=== PATIENT | female | born 1990 | race Caucasian/White ===

== ENCOUNTER 2018-12-26 16:25 | Inpatient (IN) | payer BC, OTHER ==
[2019-01-03] MEDS ORDERED: LIDOCAINE 0.5% (PF) 5 MG/ML (50 ML SDV) SQ PRN (06:47)
[2019-01-03] MEDS ORDERED: CARBOPROST TROMETHAMINE 250 MCG/ML 1 ML AMP IM PRN (06:47)
[2019-01-03] MEDS ORDERED: METHYLERGONOVINE 0.2 MG/ML 1 ML AMP IM PRN (06:47)
[2019-01-03] MEDS ORDERED: OXYTOCIN 10 UNIT/ML 1 ML VIAL IM PRN (06:47)
[2019-01-03] MEDS ORDERED: PENICILLIN G POTASSIUM 5,000,000 UNIT in DEXTROSE 5% IN WATER 100 ML IVPB STA ×2 (06:47)
[2019-01-03] MEDS ORDERED: TERBUTALINE 1 MG/ML VIAL SQ PRN (06:47)
[2019-01-03] MEDS ORDERED: OXYTOCIN 20 UNITS/1000 ML NS 1,000 ML IV SCH ×2 (07:00→17:00)
[2019-01-03] MEDS: LACTATED RINGERS 1,000 ML IV SCH ×2 (07:00→13:48)
[2019-01-03 07:18] VITALS: BMI 34.4
[2019-01-03 07:29] LABS: Basophils % (A) 0 %; Eosinophils # (A) 0.1 k/uL (0-0.7); Eosinophils % (A) 1 %; HCT 39.5 % (34.0-46.0); HGB 12.9 gm/dL (11.4-16.0); Lymphocytes # (A) 1.4 k/uL (1.0-4.8); Lymphocytes % (A) 14 %; MCH 28.5 pg (25.0-35.0); MCHC 32.7 g/dL (31.0-37.0); MCV 87.2 fL (80.0-100.0); Mean Platelet Volume 8.5; Monocytes # (A) 0.4 k/uL (0-1.0); Monocytes % (A) 4 %; Neutrophils # (A) 7.7 k/uL (1.3-7.7); Neutrophils % (A) 79 %; Platelet Count 186 k/uL (150-450); RBC 4.53 m/uL (3.80-5.40); RDW 15.3 % (11.5-15.5); WBC 9.7 k/uL (3.8-10.6)
[2019-01-03] MEDS ORDERED: BUTORPHANOL 1 MG/ML 1 ML VIAL IV PRN (08:40)
--- NOTE | 2019-01-03 08:44 | P.HPOB ---
History of Present Illness H&P Date: 01/03/19 Chief Complaint: 41 and one sevenths weeks, induction The patient is a 28-year-old 2 para 1001 admitted at 41 and one sevenths weeks by good dating parameters. She is admitted for postdates induction of labor with all signs reassuring. Her has been uncomplicated though she is known to be group B strep positive. Obstetrical history: 2 para 1001 with 1 term vaginal delivery without applications. Current statistics are listed in history present illness. EDC of 12/26/2018 was established by last menstrual period and confirmed by 8 week ultrasound. Laboratory workup done traits of blood type of A+ with a negative antibody screen. Rubella status is immune. The remainder of the laboratory workup was within normal limits. One hour Glucola is normal and group B strep status is positive. Gynecologic history: Unremarkable with no history of any infections to include STDs. Review of Systems Review of systems is confined to history of present illness. Past Medical History Past Medical History: No Reported History History of Any Multi-Drug Resistant Organisms: None Reported Additional Past Surgical History / Comment(s): [place] tooth extraction Past Anesthesia/Blood Transfusion Reactions: No Reported Reaction Past Psychological History: No Psychological Hx Reported Smoking Status: Never smoker Past Alcohol Use History: None Reported Past Drug Use History: None Reported - Past Family History Father Family Medical History: No Reported History Medications and Allergies Home Medications Medication Instructions Recorded Confirmed Type Pnv,Calcium 72/Iron/Folic Acid 1 each PO DAILY 11/13/16 01/03/19 History [ Plus Tablet] Allergies Allergy/AdvReac Type Severity Reaction Status Date / Time No Known Allergies Allergy Verified 11/16/16 06:53 Exam Vital Signs Temp Pulse Resp BP 01/03/19 07:09 97.9 F 95 16 124/68 Intake and Output 01/02/19 01/03/19 01/03/19 22:59 06:59 14:59 Other: Weight 99.79 kg In general, this is a well-developed, well-nourished white female in no acute distress. Her heart has a regular rhythm and rate without murmur. Her lungs are clear to auscultation bilaterally in all goetz. Her abdomen is gravid, nondistended, has normal active bowel sounds, soft, nontender, and without any palpable masses aside from uterine fundus. Her extremities without any cyanosis , clubbing, or significant edema and are nontender to palpation bilaterally. Digital cervical examination demonstrates her cervix to be approximately 2+ centimeters dilated, 50% effaced, the vertex in presentation at -2 station. Artificial rupture of membranes is carried out demonstrating clear fluid. Results Result Diagrams: 01/03/19 07:00 Assessment and Plan (1) Group B streptococcal infection in Current Visit: Yes Status: Acute Code(s): O98.819 - OTH MATERNAL INFEC/ PARASTC DISEASES COMP PREG, UNSP TRI; B95.1 - STREPTOCOCCUS, GROUP B, CAUSING DISEASES [facility] SN[facility] Code(s): 386811457 (2) Post-dates Current Visit: Yes Status: Acute Code(s): O48.0 - POST-TERM SNOMED Code(s): 62994835 Plan: The patient has been admitted for Pitocin induction which has been started. She additionally has antibody prophylaxis started for group B strep. She will have close maternal and surveillance and expectant management will be practiced. She is a good candidate for either IV or epidural analgesia, whichever she may choose.
[2019-01-03] MEDS ORDERED: PENICILLIN G POTASSIUM 2,500,000 UNIT in DEXTROSE 5% IN WATER 100 ML IVPB SCH ×2 (11:00)
[2019-01-03] MEDS ORDERED: SODIUM CHLORIDE 0.9% 100 ML BAG ONE (11:10)
[2019-01-03] MEDS ORDERED: fentaNYL (PF) 50 MCG/ML 5 ML AMP ONE (11:10)
[2019-01-03] MEDS ORDERED: ROPIVACAINE 5MG/ML 20ML VIAL ONE (11:10)
[2019-01-03] MEDS ORDERED: LANOLIN CREAM 5 GM TUBE TOPICAL PRN (16:56)
[2019-01-03] MEDS ORDERED: ZOLPIDEM 5 MG TAB PO PRN (16:56)
[2019-01-03] MEDS ORDERED: WITCH HAZEL 1 EACH MED..PAD TOPICAL PRN (16:56)
[2019-01-03] MEDS ORDERED: HYDROcodone/APAP 5-325MG 1 EACH TAB PO PRN (16:56)
[2019-01-03] MEDS ORDERED: BENZOCAINE/MENTHOL SPRAY 1 GM/SPRAY AEROSOL TOPICAL PRN (16:56)
[2019-01-03] MEDS ORDERED: diphenhydrAMINE 50 MG/ML 1 ML VIAL IVP PRN ×2 (16:56)
[2019-01-03] MEDS ORDERED: HYDROcodone/APAP 7.5-325MG 1 EACH TAB PO PRN (16:56)
[2019-01-03] MEDS ORDERED: diphenhydrAMINE 50 MG CAP PO PRN (16:56)
[2019-01-03] MEDS ORDERED: SIMETHICONE 80 MG CHEWABLE PO PRN (16:56)
[2019-01-03] MEDS ORDERED: ACETAMINOPHEN TAB 325 MG TAB PO PRN (16:56)
[2019-01-03] MEDS ORDERED: HYDROCORTISONE 2.5% RECTAL CREAM 30 GM TUBE RECTAL PRN (16:56)
[2019-01-03] MEDS ORDERED: diphenhydrAMINE 25 MG CAP PO PRN (16:56)
--- NOTE | 2019-01-03 17:00 | P.PROBDLV ---
Vaginal Delivery Note - . Vaginal Delivery Note: The patient is a 28-year-old 2 para 1001 admitted at 41 and one sevenths weeks by good dating parameters. She is admitted for postdates induction of labor with all signs reassuring. Her has been uncomplicated and group B strep status is positive. As result, she had antibody prophylaxis started and also had Pitocin augmentation started. She underwent artificial rupture of membranes demonstrating clear fluid. She made progress to the onset of the active phase of labor and had an epidural catheter placed for analgesia. She then made steady progress through the active phase of labor to complete and pushed over the course of approximately 5-10 minutes to a normal spontaneous vaginal delivery of a viable 9 lbs. 8 oz. baby boy with Apgars of 9 at 1 minute and 9 at 5 minutes delivered in the left occiput anterior position. There were 2 nuchal cords which were reduced following delivery of the . The placenta was delivered spontaneously, intact, and grossly normal although there were some calcifications. It had a grossly normal three-vessel cord inserted approximate 3 cm from the margin of the placental disc. A second-degree midline perineal laceration was noted over the site of a previous laceration and repaired in standard fashion using 3-0 chromic catgut without difficulty. Estimated blood loss for the case was approximately 250 mL. There were no complications. All sponge, instrument, and needle counts were correct. Both mother and are resting comfortably in recovery.
[2019-01-03] MEDS: SENNOSIDES-DOCUSATE SODIUM 1 EACH TAB PO SCH (20:18)
[2019-01-03] MEDS: IBUPROFEN 600 MG TAB PO PRN (21:59)
[2019-01-04] MEDS: IBUPROFEN 600 MG TAB PO PRN ×3 (03:25→19:34)
--- NOTE | 2019-01-04 08:53 | P.DS ---
Providers Date of admission: 01/03/19 06:39 Expected date of discharge: 01/04/19 Attending physician: Beau Alston Primary care physician: Stated None - Discharge Diagnosis(es) (1) Group B streptococcal infection in Current Visit: Yes Status: Acute (2) Post-dates Current Visit: Yes Status: Acute (3) Normal spontaneous vaginal delivery Current Visit: Yes Status: Acute Hospital Course: The patient is a 28-year-old 2 para 1001 admitted at 41 and one sevenths weeks for postdates induction. Her was uncomplicated and group B strep status was positive. On labor and delivery, she had antibody prophylaxis and Pitocin started. She underwent artificial rupture of membranes and later had an epidural catheter placed for analgesia. She progressed steadily throughout the day to complete and then pushed to a normal spontaneous vaginal delivery of a viable 9 lbs. 8 oz. baby boy with Apgars of 9 at 1 minute and 9 at 5 minutes. Her course was unremarkable with vital signs remaining stable and her temperature was afebrile throughout. She was deemed stable for discharge on day 1 was discharged home to follow-up in the office in 6 weeks' time routinely. Discharge instructions included calling for any significantly increased bleeding or foul-smelling lochia, fever or abdominal pain, perineal complaints, breast complaints, or anything else that concerned her. She is additionally instructed to have nothing in the vagina for at least 6 weeks time to include intercourse. She understood her instructions and agrees to follow up as noted above. Discharge medications included only continue vitamins as she has opted to breast-feed as well as [id number] analgesic pain medications. Maternal blood type is A+ and rubella status is immune. Procedures: #1. Pitocin induction #2. Antibiotic prophylaxis #3. Artificial rupture of membranes #4. Epidural analgesia #5. Normal spontaneous vaginal delivery #. Repair of perineal laceration Patient Condition at Discharge: Good Plan - Discharge Summary New Discharge Prescriptions: No Action Pnv,Calcium 72/Iron/Folic Acid [ Plus Tablet] 1 each PO DAILY Discharge Medication List Pnv,Calcium 72/Iron/Folic Acid [ Plus Tablet] 1 each PO DAILY 11/13/16 [ History] Follow up Appointment(s)/Referral(s): Beau Alston MD [STAFF PHYSICIAN] - 6 Weeks Discharge Disposition: HOME SELF-CARE
[2019-01-04] MEDS: SENNOSIDES-DOCUSATE SODIUM 1 EACH TAB PO SCH ×2 (09:48→20:48)
[2019-01-04 15:27] VITALS: BP 107/67; PULSE 93; RESP 20; TEMP 97.9
== END 2019-01-04 20:30 | disposition home or self-care (01) | DRG 807 ==
LOC: 4FBP 01-03 06:39
PROVIDERS: ADMIT Obstetrics & Gynecology; ATTEND Obstetrics & Gynecology
PROC: 10E0XZZ Delivery of Products of Conception, External Approach (ICD-10-PCS; principal; 2019-01-03)
PROC: 0KQM0ZZ Repair Perineum Muscle, Open Approach (ICD-10-PCS; 2019-01-03)
PROC: 10907ZC Drainage of Amniotic Fluid, Therapeutic from Products of Conception, Via Natural or Artificial Opening (ICD-10-PCS; 2019-01-03)
PROC: 3E033VJ Introduction of Other Hormone into Peripheral Vein, Percutaneous Approach (ICD-10-PCS; 2019-01-03)
PROC: 00HU33Z Insertion of Infusion Device into Spinal Canal, Percutaneous Approach (ICD-10-PCS; 2019-01-03)
PROC: 3E0R3BZ Introduction of Anesthetic Agent into Spinal Canal, Percutaneous Approach (ICD-10-PCS; 2019-01-03)
DX: O48.0 Post-term pregnancy (principal); Z37.0 Single live birth; O69.81X0 Labor and delivery complicated by cord around neck, without compression, not applicable or unspecified; O70.1 Second degree perineal laceration during delivery; O99.824 Streptococcus B carrier state complicating childbirth; Z3A.41 41 weeks gestation of pregnancy
CPT/HCPCS: 85025; 86850; 86900; 86901

== ENCOUNTER 2020-01-07 16:15 | Emergency (ER) | payer BC, OTHER ==
[2020-01-07 16:19] VITALS: BP 114/72
[2020-01-07] MEDS ORDERED: IBUPROFEN 600 MG TAB PO STA (17:22)
[2020-01-07] MEDS ORDERED: ACETAMINOPHEN TAB 325 MG TAB PO STA (17:22)
--- NOTE | 2020-01-07 17:27 | XR ---
EXAMINATION TYPE: XR chest 2V DATE OF EXAM: 01/07/2020 COMPARISON: NONE HISTORY: Cough TECHNIQUE: Frontal and lateral views of the chest are obtained. FINDINGS: There is no focal air space opacity, pleural effusion, or pneumothorax seen. Peribronchial cuffing on the lateral view. The cardiac silhouette size is within normal limits. The osseous str uctures are intact. IMPRESSION: No focal consolidation to suggest pneumonia. Peribronchial cuffing, correlate for bronch itis.
[2020-01-07] MEDS ORDERED: OSELTAMIVIR 75 MG CAP PO STA (17:33)
[2020-01-07] MEDS ORDERED: IPRATROPIUM-ALBUTEROL 3 ML NEB INHALATION STA (17:43)
[2020-01-07 18:19] VITALS: TEMP 100.9
[2020-01-07 18:27] VITALS: PULSE 119; RESP 24
--- NOTE | 2020-01-07 18:31 | ED ---
General Adult HPI - General Chief complaint: Upper Respiratory Infection Stated complaint: chest congestion Time Seen by Provider: 01/07/20 16:38 Source: patient, RN notes reviewed, old records reviewed Mode of arrival: ambulatory Limitations: no limitations - History of Present Illness Initial comments: 29-year-old female patient presents to ED with chief complaint of 2 days of cough, congestion, fever. Son has similar symptoms. Reports that she does have some rib pain with coughing. Denies any other complaints. Denies any chance of being . Systemic: Pt denies fatigue, fever/chills, rash. Pt denies weakness, night sweats, weight loss. Neuro: Pt denies headache, visual disturbances, syncope or pre-syncope. HEENT: Pt denies ocular discharge or irritation, otalgia, rhinorrhea, pharyngitis or notable lymphadenopathy. Cardiopulmonary: Pt denies heart palpitations, dyspnea on exertion. Abdominal/GI: Pt denies abdominal pain, n/v/d. : Pt denies dysuria, burning w/ urination, frequency/urgency. Denies new onset urinary or bowel incontinence. MSK: Pt denies myalgia, loss of strength or function in extremities. Neuro: Pt denies new onset weakness, paresthesias. - Related Data Home Medications Medication Instructions Recorded Confirmed Pnv,Calcium 72/Iron/Folic Acid 1 each PO DAILY 11/13/16 01/03/19 [ Plus Tablet] Previous Rx's Medication Instructions Recorded Albuterol Inhaler [Ventolin Hfa 1 - 2 puff INHALATION Q4-6H PRN #1 01/07/20 Inhaler] inhaler Oseltamivir [Tamiflu] 75 mg PO Q12HR 5 Days #10 cap 01/07/20 predniSONE 50 mg PO DAILY #5 tab 01/07/20 Allergies Allergy/AdvReac Type Severity Reaction Status Date / Time No Known Allergies Allergy Verified 01/07/20 16:19 Review of Systems ROS Statement: Those systems with pertinent positive or pertinent negative responses have been documented in the HPI. ROS Other: All systems not noted in ROS Statement are negative. Past Medical History Past Medical History: No Reported History History of Any Multi-Drug Resistant Organisms: None Reported Past Surgical History: No Surgical Hx Reported Additional Past Surgical History / Comment(s): [place] tooth extraction Past Anesthesia/Blood Transfusion Reactions: No Reported Reaction Past Psychological History: No Psychological Hx Reported Smoking Status: Never smoker Past Alcohol Use History: None Reported Past Drug Use History: None Reported - Past Family History Father Family Medical History: No Reported History General Exam - General Exam Comments Initial Comments: Constitutional: NAD, AOX3, Pt has pleasant affect. HEENT: NC/AT, trachea midline, neck supple, no lymphadenopathy. Posterior pharynx non erythematous, without exudates. External ears appear normal, without discharge. Mucous membranes moist. Eyes PERRLA, EOM intact. There is no scleral icterus. No pallor noted. Cardiopulmonary: RRR, no murmurs, rubs or gallops, no JVD noted. Lungs CTAB in anterior and posterior goetz. No peripheral edema. Abdominal exam: Abdomen soft and non-distended. Abdomen non-tender to palpation in all 4 quadrants. Bowel sounds active in LLQ. No hepatosplenomegaly. No ecchymosis Neuro: CN II-XII grossly intact. No nuchal rigidity. No raccon eyes, no casas sign, no hemotympanum. No cervical spinal tenderness. MSK: No posterior calf tenderness bilaterally, homans sign negative bilaterally. Posterior tibialis and radial pulse +2 bilaterally. Sensation intact in upper and lower extremities. Full active ROM in upper and lower extremities, 5/5 stregnth. Limitations: no limitations Course Vital Signs 01/07/20 01/07/20 01/07/20 16:17 17:19 17:57 Temperature 99.0 F 102.6 F H Pulse Rate 121 H 120 H Respiratory 18 Rate Blood Pressure 114/72 O2 Sat by Pulse 100 Oximetry 01/07/20 01/07/20 18:07 18:18 Temperature 100.9 F H Pulse Rate 120 H Respiratory Rate Blood Pressure O2 Sat by Pulse Oximetry Medical Decision Making - Medical Decision Making 29-year-old female patient presents to ED with chief complaint of 2 days of cough, congestion, fever. Son has similar symptoms. Reports that she does have some rib pain with coughing. Denies any other complaints. Denies any chance of being . She will signs displayed fever. Patient history of periodic. Influenza B is positive. Chest x-ray despite peribronchial cuffing, quite for bronchitis. Patient is within therapeutic window for Tamiflu. She reports that the coughing is making her feel somewhat short of breath. Patient was administered breathing treatments she did have improvement. I do believe patient experiencing influenza with some possible associated pleurisy and bronchitis. Patient will be initiated on Tamiflu and also be discharged with when necessary breathing treatments, steroids, advised to use anti-inflammatories. She'll follow up with primary care for tomorrow, and will return to ER if condition worsens. Case discussed with Dr. Jimenez. - Lab Data Lab Results 01/07/20 Range/Units 16:56 Influenza Type A RNA Not Detected (Not Detectd) Influenza Type B (PCR) Detected H (Not Detectd) Disposition Clinical Impression: Influenza B, Bronchitis Disposition: HOME SELF-CARE Condition: Stable Instructions (If sedation given, give patient instructions): Influenza (ED) Additional Instructions: Take medications as directed. Follow up with PCP tomorrow. Use breathing treatments as necessary. Return to ER if condition worsens in anyway. Prescriptions: predniSONE 50 mg PO DAILY #5 tab Oseltamivir [Tamiflu] 75 mg PO Q12HR 5 Days #10 cap Albuterol Inhaler [Ventolin Hfa Inhaler] 1 - 2 puff INHALATION Q4-6H PRN #1 inhaler PRN Reason: Cough Is patient prescribed a controlled substance at d/c from ED?: No Referrals: None,Stated [Primary Care Provider] - 1-2 days [facility] [NON-STAFF] - 1-2 days
== END 2020-01-07 18:35 | disposition home or self-care (01) ==
LOC: EC 16:15
DX: J10.1 Influenza due to other identified influenza virus with other respiratory manifestations (principal); J40 Bronchitis, not specified as acute or chronic
CPT/HCPCS: 71046; 87502; 94640; 99284

== ENCOUNTER → 2021-11-18 | Outpatient (CLI) | payer BC ==
--- NOTE | 2021-11-18 12:31 | US ---
EXAMINATION TYPE: US abdomen complete DATE OF EXAM: 11/18/2021 COMPARISON: NONE CLINICAL HISTORY: R10.13. EXAM MEASUREMENTS: Liver Length: 15.4 cm Gallbladder Wall: 0.2 cm CBD: 0.1 cm Spleen: 12.3 cm Right Kidney: 11.0 x 4.6 x 5.2 cm Left Kidney: 11.0 x 4.3 x 4.7 cm Pancreas: wnl Liver: wnl Gallbladder: wnl Evidence for sonographic Turner's sign: no CBD: wnl Spleen: wnl Right Kidney: somewhat limited due to overlying bowel gas, appears wnl Left Kidney: somewhat limited due to overlying bowel gas, appears wnl Upper IVC: wnl Abd Aorta: wnl The liver is homogenous. The intrahepatic portion of the IVC and proximal abdominal aorta are unrema rkable in the visualized portions. There is no evidence of cholelithiasis. Common bile duct is unre markable. The visualized portions of the pancreas are homogenous. The spleen is unremarkable. Kidn eys are symmetric and free of hydronephrosis, cortical injury differentiation is maintained. No ramandeep l lesions are seen. IMPRESSION: No significant abnormality is evident
--- NOTE | 2021-11-18 12:41 | US ---
EXAMINATION TYPE: US pelvic complete DATE OF EXAM: 11/18/2021 COMPARISON: NONE CLINICAL HISTORY: r10.13. TECHNIQUE: Transabdominal (TA) Patient states symptom of pelvic fullness. Date of LMP: 10-25-21 EXAM MEASUREMENTS: Uterus: 7.4 x 3.4 x 5.3 cm Endometrial Stripe: 1.1 cm Right Ovary: 2.2 x 1.4 x 1.6 cm Left Ovary: 2.0 x 1.2 x 1.6 cm 1. Uterus: Retroverted wnl 2. Endometrium: wnl 3. Right Ovary: wnl 4. Left Ovary: wnl 5. Bilateral Adnexa: wnl 6. Posterior cul-de-sac: wnl IMPRESSION: No significant abnormality is evident.
== END | disposition home or self-care (01) ==
LOC: RADUSWWP 10:14
PROVIDERS: ATTEND Family Medicine
DX: R10.13 Epigastric pain (principal); R10.2 Pelvic and perineal pain
CPT/HCPCS: 76700; 76856

== ENCOUNTER 2024-01-25 20:29 | Emergency (ER) | payer BC ==
--- NOTE | 2024-01-25 20:49 | ED ---
ENT HPI - General Source: patient, RN notes reviewed Mode of arrival: ambulatory Limitations: no limitations - History of Present Illness MD complaint: sore throat <Noreen Romero - Last Filed: 01/25/24 20:48> <Sujey Lindo - Last Filed: 01/26/24 03:19> - General Chief complaint: ENT Stated complaint: sore throat 19 weeks Time Seen by Provider: 01/25/24 20:48 - History of Present Illness Initial comments: Quick Note: This is a 33-year-old female who presents to the emergency department for a headache, sore throat, and congestion. Symptoms started 2 days ago. Denies any fevers or chills. She is 19 weeks and denies any pelvic pain, vaginal bleeding, or vaginal discharge. (Noreen Romero) 33-year-old female presenting with chief complaint of sore throat. Yesterday she started this. Stating congestion cough headache and sore throat. States that throughout the day today the sore throat has been getting worse. No fevers or chills. No nausea, vomiting, diarrhea. Patient is currently 19 weeks , no abdominal pain or vaginal bleeding. No chest pain or difficulty breathing. (Sujey Lindo) - Related Data Home Medications Medication Instructions Recorded Confirmed Pnv,Calcium 72/Iron/Folic Acid 1 each PO DAILY 11/13/16 01/03/19 [ Plus Tablet] Previous Rx's Medication Instructions Recorded Albuterol Inhaler [Ventolin Hfa 1 - 2 puff INHALATION Q4-6H PRN #1 01/07/20 Inhaler] inhaler Oseltamivir [Tamiflu] 75 mg PO Q12HR 5 Days #10 cap 01/07/20 predniSONE 50 mg PO DAILY #5 tab 01/07/20 Oseltamivir [Tamiflu] 75 mg PO Q12HR 5 Days #10 cap 01/25/24 Allergies Allergy/AdvReac Type Severity Reaction Status Date / Time No Known Allergies Allergy Verified 01/25/24 20:43 Review of Systems ROS Other: All systems not noted in ROS Statement are negative. <Noreen Romero - Last Filed: 01/25/24 20:48> ROS Other: All systems not noted in ROS Statement are negative. <Sujey Lindo - Last Filed: 01/26/24 03:19> ROS Statement: Those systems with pertinent positive or pertinent negative responses have been documented in the HPI. Past Medical History Past Medical History: No Reported History History of Any Multi-Drug Resistant Organisms: None Reported Past Surgical History: No Surgical Hx Reported Additional Past Surgical History / Comment(s): [place] tooth extraction Past Anesthesia/Blood Transfusion Reactions: No Reported Reaction Past Psychological History: No Psychological Hx Reported Past Alcohol Use History: None Reported Past Drug Use History: None Reported - Past Family History Father Family Medical History: No Reported History <Noreen Romero - Last Filed: 01/25/24 20:48> General Exam Limitations: no limitations <Noreen Romero - Last Filed: 01/25/24 20:48> Limitations: no limitations General appearance: alert, in no apparent distress Head exam: Present: atraumatic, normocephalic Eye exam: Present: normal appearance ENT exam: Present: normal exam, normal oropharynx, mucous membranes moist Neck exam: Present: normal inspection Respiratory exam: Present: normal lung sounds bilaterally. Absent: respiratory distress, wheezes, rales, rhonchi, stridor Cardiovascular Exam: Present: regular rate, normal rhythm, normal heart sounds. Absent: systolic murmur, diastolic murmur, rubs, gallop, clicks Neurological exam: Present: alert, oriented X3 Psychiatric exam: Present: normal affect, normal mood Skin exam: Present: warm, dry <Sujey Lindo - Last Filed: 01/26/24 03:19> - General Exam Comments Initial Comments: Visual Physical Exam Vital signs reviewed General: Well-appearing, nontoxic, no acute distress. Head: Normocephalic, atraumatic Eyes: PERRLA, EOMI ENT: Airway patent Chest: Nonlabored breathing Skin: No visual rash, normal skin tone Neuro: Alert and oriented 3 Musculoskeletal: No gross abnormalities (Noreen Romero) Course Vital Signs 01/25/24 01/25/24 20:40 23:18 Temperature 98.8 F 98.7 F Pulse Rate 92 91 Respiratory 18 18 Rate Blood Pressure 127/84 125/83 O2 Sat by Pulse 99 98 Oximetry Medical Decision Making <Noreen Romero - Last Filed: 01/25/24 20:48> <Sujey Lindo - Last Filed: 01/26/24 03:19> - Medical Decision Making I performed the QuickNote portion of this chart. Signed Noreen Romero PA-C. (Noreen Romero) Was pt. sent in by a medical professional or institution (ELAINE Toribio, VARNISHING MACHINE OPERATOR, urgent care, hospital, or senior living...) When possible be specific @ -No Did you speak to anyone other than the patient for history (EMS, parent, family, police, friend...)? What history was obtained from this source @ -No Did you review nursing and triage notes (agree or disagree)? Why? @ -I reviewed and agree with nursing and triage notes Were old charts reviewed (outside hosp., previous admission, EMS record, old EKG, old radiological studies, urgent care reports/EKG's, senior living records)? Report findings @ -No old charts were reviewed Differential Diagnosis (chest pain, altered mental status, abdominal pain women, abdominal pain men, vaginal bleeding, weakness, fever, dyspnea, syncope, headache, dizziness, GI bleed, back pain, seizure, CVA, palpatations, mental health, musculoskeletal)? @ -Differential includes strep pharyngitis, influenza, RSV, COVID, peritonsillar abscess, this is not an all-inclusive list EKG interpreted by me (3pts min.). @ -As above X-rays interpreted by me (1pt min.). @ -None done CT interpreted by me (1pt min.). @ -None done U/S interpreted by me (1pt. min.). @ -None done What testing was considered but not performed or refused? (CT, X-rays, U/S, labs)? Why? @ -None What meds were considered but not given or refused? Why? @ -None Did you discuss the management of the patient with other professionals (professionals i.e. ELAINE Toribio, VARNISHING MACHINE OPERATOR, lab, RT, psych nurse, certified social workers in health care, bologna lacer, teacher, co founder and chief strategy officer, correctional casework specialist)? Give summary @ -No Was smoking cessation discussed for >3mins.? @ -No Was critical care preformed (if so, how long)? @ -No Were there social determinants of health that impacted care today? How? (Homelessness, low income, unemployed, alcoholism, drug addiction, transportation, low edu. Level, literacy, decrease access to med. care, retirement, rehab)? @ -No Was there de-escalation of care discussed even if they declined (Discuss DNR or withdrawal of care, Hospice)? DNR status @ -No What co-morbidities impacted this encounter? (DM, HTN, Smoking, COPD, CAD, Cancer, CVA, ARF, Chemo, Hep., AIDS, mental health diagnosis, sleep apnea, morbid obesity)? @ -None Was patient admitted / discharged? Hospital course, mention meds given and route, prescriptions, significant lab abnormalities, going to OR and other pertinent info. @ -33-year-old female presenting with chief complaint of sore throat, congestion, cough, and headache. Workup is initiated by triage. Patient is positive for influenza A. Negative for RSV, COVID, group A strep. Patient is then evaluated by myself. Heart and lungs are clear to auscultation and normal posterior pharynx. Patient is currently 19 weeks , she has no abdominal pain or vaginal bleeding. Vital signs are WNL. She is educated on today's findings. She started on Tamiflu. Discharged home. Follow-up with PCP. Report back to ER with any new or worsening symptoms. Discussed return parameters and answered all questions. Patient conveyed verbal understanding and agreed to the plan. I discussed this case in detail with my attending Dr. Nelson Undiagnosed new problem with uncertain prognosis? @ -No Drug Therapy requiring intensive monitoring for toxicity (Heparin, Nitro, Insulin, Cardizem)? @ -No Were any procedures done? @ -No Diagnosis/symptom? @ -Influenza A Acute, or Chronic, or Acute on Chronic? @ -Acute Uncomplicated (without systemic symptoms) or Complicated (systemic symptoms)? @ -Uncomplicated Side effects of treatment? @ -No Exacerbation, Progression, or Severe Exacerbation? @ -No Poses a threat to life or bodily function? How? (Chest pain, [place], [place], pneumonia, PE, COPD, DKA, ARF, appy, cholecystitis, CVA, Diverticulitis, Homicidal, Suicidal, threat to staff... and all critical care pts) @ -No (Sujey Lindo) - Lab Data Lab Results 01/25/24 01/25/24 Range/Units 20:48 20:48 Influenza Type A (PCR) Detected A (Not Detectd) Influenza Type B (PCR) Not Detected (Not Detectd) RSV (PCR) Not Detected (Not Detectd) SARS-CoV-2 (PCR) Not Detected (Not Detectd) Group A Strep (PCR) NOT DETECTED (Not Detectd) Disposition <Noreen Romero - Last Filed: 01/25/24 20:48> Is patient prescribed a controlled substance at d/c from ED?: No Time of Disposition: 23:07 <Sujey Lindo - Last Filed: 01/26/24 03:19> Clinical Impression: Influenza A Disposition: HOME SELF-CARE Condition: Good Instructions (If sedation given, give patient instructions): Influenza (ED) Additional Instructions: Follow-up with PCP. Report back to ER with any new or worsening symptoms. Take Tylenol as needed for fever and pain control. Take medication as prescribed. Prescriptions: Oseltamivir [Tamiflu] 75 mg PO Q12HR 5 Days #10 cap Referrals: Gurjit Gauthier Jr, DO [Primary Care Provider] - 1-2 days
[2024-01-25 20:56] VITALS: RESP 18
[2024-01-25 23:25] VITALS: BP 125/83; PULSE 91; TEMP 98.7
== END 2024-01-25 23:23 | disposition home or self-care (01) ==
LOC: EC 20:29
DX: O98.512 Other viral diseases complicating pregnancy, second trimester (principal); J10.1 Influenza due to other identified influenza virus with other respiratory manifestations; Z20.822 Contact with and (suspected) exposure to COVID-19; Z3A.19 19 weeks gestation of pregnancy
CPT/HCPCS: 87636; 87651; 99284

== ENCOUNTER 2024-06-15 06:30 | Inpatient (IN) | payer BC, OTHER ==
[2024-06-15] MEDS ORDERED: TERBUTALINE 1 MG/ML VIAL SQ PRN (06:43)
[2024-06-15] MEDS ORDERED: miSOPROStoL 200 MCG TAB PO PRN (06:43)
[2024-06-15] MEDS ORDERED: TRANEXAMIC 1,000 MG/100ML-NACL 1,000 MG in EMPTY BAG 1 BAG IV PRN (06:43)
[2024-06-15] MEDS ORDERED: OXYTOCIN 10 UNIT/ML 1 ML VIAL IM PRN (06:43)
[2024-06-15] MEDS ORDERED: miSOPROStoL 200 MCG TAB RECTAL PRN (06:43)
[2024-06-15] MEDS ORDERED: CARBOPROST TROMETHAMINE 250 MCG/ML 1 ML AMP IM PRN (06:43)
[2024-06-15] MEDS ORDERED: METHYLERGONOVINE 0.2 MG/ML 1 ML AMP IM PRN (06:43)
[2024-06-15] MEDS: LACTATED RINGERS 1,000 ML IV SCH (06:53)
[2024-06-15 07:07] LABS: Basophils % (A) 0 %; Eosinophils # (A) 0.1 k/uL (0-0.7); Eosinophils % (A) 1 %; HCT 37.1 % (34.0-46.0); HGB 12.2 gm/dL (11.4-16.0); Lymphocytes # (A) 1.2 k/uL (1.0-4.8); Lymphocytes % (A) 16 %; MCH 29.3 pg (25.0-35.0); MCHC 32.8 g/dL (31.0-37.0); MCV 89.5 fL (80.0-100.0); Mean Platelet Volume 9.9; Monocytes # (A) 0.4 k/uL (0-1.0); Monocytes % (A) 5 %; Neutrophils % (A) 77 %; Platelet Count 167 k/uL (150-450); RBC 4.15 m/uL (3.80-5.40); RDW 14.3 % (11.5-15.5); WBC 7.8 k/uL (3.8-10.6)
[2024-06-15] MEDS: OXYTOCIN 30 UNITS/500 ML NS 30 UNIT in SALINE 1 500ML.BAG IV SCH ×2 (07:45→22:38)
[2024-06-15] MEDS ORDERED: NALBUPHINE 10 MG/ML (10 ML MDV) IV PRN (09:34)
--- NOTE | 2024-06-15 09:34 | P.HPOB ---
History of Present Illness H&P Date: 06/15/24 Chief Complaint: 39-0/7 weeks, elective induction Patient is a 34-year-old 4 para 2-0-1-2 admitted at 39-0/7 weeks as established by a 6-week ultrasound. She is admitted for elective induction with all signs reassuring, category 1 heart rate tracing. Her has been entirely uncomplicated and group B strep status is negative. Obstetrical history: 4 para 2-0-1-2 with 2 term vaginal deliveries without complications. EDC of 06/22/2024 was established by a 6-week ultrasound. Laboratory workup demonstrates a blood type of A+ with a negative antibody screen. Rubella status is immune. The remainder of the laboratory workup was within normal limits. Early Glucola and second trimester Glucola were both within normal limits and group B strep status is negative. Gynecologic history: Unremarkable with no history of any infections to include STDs. Review of Systems Review of systems is confined to history of present illness. Past Medical History Past Medical History: No Reported History History of Any Multi-Drug Resistant Organisms: None Reported Past Surgical History: No Surgical Hx Reported Additional Past Surgical History / Comment(s): [place] tooth extraction Past Anesthesia/Blood Transfusion Reactions: No Reported Reaction Past Psychological History: No Psychological Hx Reported Smoking Status: Never smoker Past Alcohol Use History: None Reported Past Drug Use History: None Reported - Past Family History Father Family Medical History: No Reported History Medications and Allergies Home Medications Medication Instructions Recorded Confirmed Type Pnv,Calcium 72/Iron/Folic Acid 1 each PO DAILY 11/13/16 06/15/24 History [ Plus Tablet] Allergies Allergy/AdvReac Type Severity Reaction Status Date / Time No Known Allergies Allergy Verified 06/15/24 06:38 Exam Vital Signs Temp Pulse Resp BP Pulse Ox 06/15/24 06:45 97.3 F L 100 16 132/70 98 Intake and Output 06/14/24 06/15/24 06/15/24 22:59 06:59 14:59 Other: Weight 99.79 kg General, this is a well-developed, well-nourished white female in no acute distress. Her heart has a regular rhythm and rate without murmur. Her lungs are clear to auscultation bilaterally in all goetz. Her abdomen is gravid, nondistended, has normal active bowel sounds, soft, nontender, and without any palpable masses aside from uterine fundus. Her extremities are without any cyanosis, clubbing, or significant edema and are nontender to palpation bilaterally. Her cervix is approximately 1+ centimeters dilated, 40 to 50% effaced, with a vertex and presentation at -2-3 station. Artificial rupture of membranes is carried out demonstrating clear fluid. Results Result Diagrams: 06/15/24 06:57 Assessment and Plan (1) Term Current Visit: Yes Status: Acute Code(s): Z34.90 - ENCNTR FOR SUPRVSN OF NO RMAL , UNSP, UNSP TRIMESTER SNOMED Code(s): 47057555 Plan: This documentation has been started and artificial rupture of membranes carried out. She will have close maternal and surveillance and expectant management will be practiced. She is a good candidate for either IV, epidural, or nitrous analgesia, whichever she may choose.
[2024-06-15] MEDS ORDERED: fentaNYL (PF) 50 MCG/ML 5 ML AMP ONE (12:15)
[2024-06-15] MEDS ORDERED: SODIUM CHLORIDE 0.9% 250 ML BAG ONE (12:15)
[2024-06-15] MEDS ORDERED: ROPIVACAINE 5 MG/ML 30 ML VIAL ONE (12:15)
[2024-06-15] MEDS: LIDOCAINE 0.5% (PF) 5 MG/ML (50 ML SDV) SQ PRN (20:59)
[2024-06-15] MEDS ORDERED: HYDROCORTISONE 2.5% RECTAL CREAM 30 GM TUBE RECTAL PRN (21:12)
[2024-06-15] MEDS ORDERED: HYDROcodone/APAP 7.5-325MG 1 EACH TAB PO PRN (21:12)
[2024-06-15] MEDS ORDERED: ZOLPIDEM 5 MG TAB PO PRN (21:12)
[2024-06-15] MEDS ORDERED: HYDROcodone/APAP 5-325MG 1 EACH TAB PO PRN (21:12)
[2024-06-15] MEDS ORDERED: diphenhydrAMINE 50 MG CAP PO PRN (21:12)
[2024-06-15] MEDS ORDERED: SIMETHICONE 80 MG CHEWABLE PO PRN (21:12)
[2024-06-15] MEDS ORDERED: diphenhydrAMINE 50 MG/ML 1 ML VIAL IVP PRN ×2 (21:12)
[2024-06-15] MEDS ORDERED: diphenhydrAMINE 25 MG CAP PO PRN (21:12)
[2024-06-15] MEDS ORDERED: BENZOCAINE/MENTHOL SPRAY 1 GM/SPRAY AEROSOL TOPICAL PRN (21:12)
[2024-06-15] MEDS ORDERED: LANOLIN CREAM 1 GM TUBE TOPICAL PRN (21:12)
--- NOTE | 2024-06-15 21:15 | P.PROBDLV ---
Vaginal Delivery Note - . Vaginal Delivery Note: The patient is a 34-year-old 4 para 2-0-1-2 admitted at 39-0/7 weeks by good dating parameters. She is admitted for elective induction of labor with all signs reassuring. Her has been entirely uncomplicated and group B strep status is negative. On labor delivery, all signs are reassuring with a category 1 heart rate tracing. She had Pitocin augmentation started and underwent artificial rupture of membranes for clear fluid. She had an epidural catheter placed towards the end of the latent phase of labor. She progressed to approximately 4 cm and stopped there for some time but then progressed very quickly this evening from 4 cm to complete over the course of approximately 1 hour. She pushed over the course of 4 contractions to a normal spontaneous vaginal delivery of a viable 7 pound 13 ounce baby girl with Apgars of 8 at 1 minute and 9 at 5 minutes delivered in the direct occiput anterior position. The placenta was delivered spontaneously, intact, and grossly normal with a grossly normal, centrally inserted three-vessel cord. There was a small second- degree midline perineal laceration over the site of previous lacerations which was repaired in standard fashion using 3-0 chromic catgut without difficulty. Estimated blood loss for the case was approximate 100 mL. There were no complications. All sponge, instrument, and needle counts were correct. Both mother and are resting comfortably in recovery.
[2024-06-16] MEDS: IBUPROFEN 600 MG TAB PO PRN (00:08)
[2024-06-16 06:02] LABS: Basophils % (A) 0 %; Eosinophils # (A) 0.1 k/uL (0-0.7); Eosinophils % (A) 1 %; HCT 36.6 % (34.0-46.0); HGB 12.1 gm/dL (11.4-16.0); Lymphocytes # (A) 1.2 k/uL (1.0-4.8); Lymphocytes % (A) 9 %; MCH 30.3 pg (25.0-35.0); MCHC 33.2 g/dL (31.0-37.0); MCV 91.2 fL (80.0-100.0); Mean Platelet Volume 9.6; Monocytes # (A) 0.6 k/uL (0-1.0); Monocytes % (A) 4 %; Neutrophils # (A) 10.5 k/uL (1.3-7.7); Neutrophils % (A) 84 %; Platelet Count 160 k/uL (150-450); RBC 4.01 m/uL (3.80-5.40); WBC 12.5 k/uL (3.8-10.6)
[2024-06-16] MEDS: SENNOSIDES-DOCUSATE SODIUM 1 EACH TAB PO SCH (07:37)
[2024-06-16] MEDS: ACETAMINOPHEN TAB 325 MG TAB PO PRN (10:46)
--- NOTE | 2024-06-16 12:33 | P.DS ---
Providers Date of admission: 06/15/24 06:35 Expected date of discharge: 06/16/24 Attending physician: Beau Alston Primary care physician: [facility] Course: Ms. Harris is a 34 year old now PPD#1 s/p normal vaginal delivery. The patient is doing well this morning and had no acute events overnight. She has no complaints this morning. She reports minimal lochia, passing flatus, voiding without difficulty, ambulating, and eating/drinking without nausea or vomiting. Infant doing well at bedside. She denies chest pain, shortness of breathing, fevers, or chills overnight. She denies pain or swelling in the legs. Post-p artum restrictions are reviewed with the patient including pelvic rest for 6 weeks. The patient is encouraged to call the office if she experiences any heavy bleeding, foul-smelling discharge, breast complaints, or any if she has any other concerns. She will follow up in the office with Dr. Alston in 6 weeks for post exam. She requests a prescription for Motrin and Tylenol. All questions are answered. Assessment: 34 year old now PPD#1 s/p NVD Patient Condition at Discharge: Good Plan - Discharge Summary New Discharge Prescriptions: New Acetaminophen Tab [Tylenol] 650 mg PO Q6H PRN #30 tab PRN Reason: Mild Pain (Scale 1 To 3) Ibuprofen [Motrin] 600 mg PO Q6HR PRN #30 tab PRN Reason: Mild Pain (Scale 1 To 3) No Action Pnv,Calcium 72/Iron/Folic Acid [ Plus Tablet] 1 each PO DAILY Discharge Medication List Pnv,Calcium 72/Iron/Folic Acid [ Plus Tablet] 1 each PO DAILY 11/13/16 [History] Acetaminophen Tab [Tylenol] 650 mg PO Q6H PRN #30 tab 06/16/24 [Rx] Ibuprofen [Motrin] 600 mg PO Q6HR PRN #30 tab 06/16/24 [Rx] Follow up Appointment(s)/Referral(s): Beau Alston MD [STAFF PHYSICIAN] - 6 Weeks Activity/Diet/Wound Care/Special Instructions: Instructions 1. Do not begin any exercise program for 3 weeks. 2. Do not resume sexual relations for 6 weeks or longer if uncomfortable. 3. You may take tub baths or showers at any time. 4. You may use tampons if desired after 6 weeks. 5. Keep any areas repaired with stitches clean and dry. 6. If you are not nursing, wear a good fitting, supportive bra during the day and limit fluid intake for at least 1 week to prevent breast engorgement. 7. Call the office, , within the next week to make appointment for your 6 week checkup if it has not already been made. 8. Report any of the following occurrences to the doctor promptly: a. Heavy, excessive bleeding b. Chills, fever c. Burning or frequency of urination d. Pain or redness and breasts if nursing e. Increasing pain or swelling of vulva (stitches). In addition to the above instructions, the following additional should be followed: 1. No heavy lifting or straining (exercising) until after 6 week checkup. 2. Keep abdominal incision clean and dry: You may wear a dressing if more comfortable. 3. Make office appointment for 2 weeks after delivery date. Discharge Disposition: HOME SELF-CARE
[2024-06-16 17:05] VITALS: RESP 16; TEMP 98
[2024-06-16 20:15] VITALS: BP 126/77; PULSE 80
== END 2024-06-16 21:35 | disposition home or self-care (01) | DRG 807 ==
LOC: 4FBP 06:35
PROVIDERS: ADMIT Obstetrics & Gynecology; ATTEND Obstetrics & Gynecology
PROC: 10907ZC Drainage of Amniotic Fluid, Therapeutic from Products of Conception, Via Natural or Artificial Opening (ICD-10-PCS; principal; 2024-06-15)
PROC: 10E0XZZ Delivery of Products of Conception, External Approach (ICD-10-PCS; principal; 2024-06-15)
PROC: 0KQM0ZZ Repair Perineum Muscle, Open Approach (ICD-10-PCS; principal; 2024-06-15)
PROC: 3E033VJ Introduction of Other Hormone into Peripheral Vein, Percutaneous Approach (ICD-10-PCS; 2024-06-15)
DX: O70.1 Second degree perineal laceration during delivery (principal); Z37.0 Single live birth; Z28.310 Unvaccinated for COVID-19; Z3A.39 39 weeks gestation of pregnancy; Z79.899 Other long term (current) drug therapy
CPT/HCPCS: 85025; 86850; 86900; 86901

== ENCOUNTER 2025-06-18 19:08 | Emergency (ER) | payer BC, OTHER ==
[2025-06-18 19:18] VITALS: RESP 18; TEMP 98.3
--- NOTE | 2025-06-18 21:16 | ED ---
General Adult HPI - General Chief complaint: Dizziness Stated complaint: Dizziness Time Seen by Provider: 06/18/25 20:22 Source: patient, RN notes reviewed Mode of arrival: ambulatory Limitations: no limitations - History of Present Illness Initial comments: 35-year-old female presents to the emergency department for evaluation of dizziness. She notes that this has been going on for 3 days. She notes that she feels dizzy like the room is spinning. She does report pressure in her right ear. She denies any recent illness. Denies fever, chills. She does endorse some nausea. She has no significant past medical history. - Related Data Home Medications Medication Instructions Recorded Confirmed Pnv,Calcium 72/Iron/Folic Acid 1 each PO DAILY 11/13/16 06/15/24 [ Plus Tablet] Previous Rx's Medication Instructions Recorded Acetaminophen Tab [Tylenol] 650 mg PO Q6H PRN #30 tab 06/16/24 Ibuprofen [Motrin] 600 mg PO Q6HR PRN #30 tab 06/16/24 Fluticasone Nasal [place] [Flonase 2 spray EA NOSTRIL DAILY #16 gm 06/18/25 Nasal [place]] Loratadine [Claritin] 10 mg PO DAILY #14 tab 06/18/25 Allergies Allergy/AdvReac Type Severity Reaction Status Date / Time No Known Allergies Allergy Verified 06/15/24 06:38 Review of Systems ROS Statement: Those systems with pertinent positive or pertinent negative responses have been documented in the HPI. ROS Other: All systems not noted in ROS Statement are negative. Past Medical History Past Medical History: No Reported History History of Any Multi-Drug Resistant Organisms: None Reported Past Surgical History: No Surgical Hx Reported Additional Past Surgical History / Comment(s): [place] tooth extraction Past Anesthesia/Blood Transfusion Reactions: No Reported Reaction Past Psychological History: No Psychological Hx Reported Smoking Status: Never smoker Past Alcohol Use History: None Reported Past Drug Use History: None Reported - Past Family History Father Family Medical History: No Reported History General Exam Limitations: no limitations General appearance: alert, in no apparent distress Head exam: Present: atraumatic, normocephalic, normal inspection Eye exam: Present: normal appearance, PERRL, EOMI. Absent: scleral icterus, conjunctival injection, periorbital swelling ENT exam: Present: normal exam, mucous membranes moist, normal external ear exam. Absent: TM's normal bilaterally (Fluid buildup behind the right TM) Respiratory exam: Present: normal lung sounds bilaterally. Absent: respiratory distress, wheezes, rales, rhonchi, stridor Cardiovascular Exam: Present: regular rate, normal rhythm, normal heart sounds. Absent: systolic murmur, diastolic murmur, rubs, gallop, clicks Extremities exam: Present: normal inspection, full ROM, normal capillary refill. Absent: tenderness, pedal edema, joint swelling, calf tenderness Neurological exam: Present: alert, oriented X3 Psychiatric exam: Present: normal affect, normal mood Skin exam: Present: warm, dry, intact, normal color. Absent: rash Course Vital Signs 06/18/25 06/18/25 06/18/25 19:15 22:00 22:24 Temperature 98.3 F Pulse Rate 89 82 Pulse Rate [ 82 Right] Respiratory 18 18 18 Rate Blood Pressure 134/91 135/89 Blood Pressure 135/89 [Right Arm] O2 Sat by Pulse 98 98 98 Oximetry 06/18/25 06/18/25 22:25 23:57 Temperature Pulse Rate 89 Pulse Rate [ 91 Right] Respiratory 18 18 Rate Blood Pressure 136/87 Blood Pressure 143/100 [Right Arm] O2 Sat by Pulse 99 99 Oximetry Medical Decision Making - Medical Decision Making Was pt. sent in by a medical professional or institution (ELAINE Toribio, SENIOR PRINCIPAL PROCESS ENGINEER, urgent care, hospital, or retirement...) When possible be specific @ -No Did you speak to anyone other than the patient for history (EMS, parent, family, police, friend...)? What history was obtained from this source @ -No Did you review nursing and triage notes (agree or disagree)? Why? @ -I reviewed and agree with nursing and triage notes Were old charts reviewed (outside hosp., previous admission, EMS record, old EKG, old radiological studies, urgent care reports/EKG's, retirement records)? Report findings @ -No old charts were reviewed Differential Diagnosis (chest pain, altered mental status, abdominal pain women, abdominal pain men, vaginal bleeding, weakness, fever, dyspnea, syncope, headache, dizziness, GI bleed, back pain, seizure, CVA, palpatations, mental health, musculoskeletal)? @ -Differential Dizziness: Benign paroxysmal positional Vertigo, Meniere's disease, otitis media, acoustic neuroma, vertebrobasilar insufficiency, cerebellar stroke, encephalitis, hypovolemic, arrhythmia, coronary artery syndrome, anemia, this is not meant to be an all-inclusive list EKG interpreted by me (3pts min.). @ -EKG@2133 reveals sinus rhythm rate of 80, [place] 155, QRS 101, QTQTc 435311 X-rays interpreted by me (1pt min.). @ -None done CT interpreted by me (1pt min.). @ -None done U/S interpreted by me (1pt. min.). @ -None done What testing was considered but not performed or refused? (CT, X-rays, U/S, la bs)? Why? @ -None What meds were considered but not given or refused? Why? @ -None Did you discuss the management of the patient with other professionals (professionals i.e. , PA, SENIOR PRINCIPAL PROCESS ENGINEER, lab, RT, psych nurse, social media senior associate, real estate assessor, teacher, jailer/training officer, manager case management)? Give summary @ -No Was smoking cessation discussed for >3mins.? @ -No Was critical care preformed (if so, how long)? @ -No Were there social determinants of health that impacted care today? How? (Homelessness, low income, unemployed, alcoholism, drug addiction, transportation, low edu. Level, literacy, decrease access to med. care, group home, rehab)? @ -No Was there de-escalation of care discussed even if they declined (Discuss DNR or withdrawal of care, Hospice)? DNR status @ -No What co-morbidities impacted this encounter? (DM, HTN, Smoking, COPD, CAD, Cancer, CVA, ARF, Chemo, Hep., AIDS, mental health diagnosis, sleep apnea, morbid obesity)? @ -None Was patient admitted / discharged? Hospital course, mention meds given and route, prescriptions, significant lab abnormalities, going to OR and other pertinent info. @ -Discharged. Patient presented the emergency department for evaluation of dizziness. Laboratory studies were obtainedRevealing no significant leukocytosis, hemoglobin 13.9; CMP is nonactionable UA shows trace blood, large leukocyte esterase, 25 WBCs, 29 squamous cells. This will be sent for urine culture. Patient had a negative urine hCG. She was provided meclizine in the emergency department with some improvement in her symptoms. She was also administered a scopolamine patch and advised on treatment for eustachian tube dysfunction. Patient will be discharged home. She is understanding agreeable plan. Patient stable at time of discharge. Case discussed with Dr. Nelson Undiagnosed new problem with uncertain prognosis? @ -No Drug Therapy requiring intensive monitoring for toxicity (Heparin, Nitro, Insulin, Cardizem)? @ -No Were any procedures done? @ -No Diagnosis/symptom? @ -Dizziness, eustachian tube dysfunction Acute, or Chronic, or Acute on Chronic? @ -Acute Uncomplicated (without systemic symptoms) or Complicated (systemic symptoms)? @ -Uncomplicated Side effects of treatment? @ -No Exacerbation, Progression, or Severe Exacerbation? @ -No Poses a threat to life or bodily function? How? (Chest pain, USA, CT, pneumonia, PE, COPD, DKA, ARF, appy, cholecystitis, CVA, Diverticulitis, Homicidal, Suicidal, threat to staff... and all critical care pts) @ -No - Lab Data Result diagrams: 06/18/25 21:17 06/18/25 21:17 Lab Results 06/18/25 06/18/25 06/18/25 Range/Units 21:17 21:17 21:25 WBC 8.42 (4.50-10.00) 10*3/uL RBC 4.87 (4.10-5.20) 10*6/uL Hgb 13.9 (12.0-15.0) g/dL Hct 41.7 (37.2-46.3) % MCV 85.6 (80.0-97.0) fL MCH 28.5 (27.0-32.0) pg MCHC 33.3 (32.0-37.0) g/dL Plt Count 273 (140-440) 10*3/uL MPV 9.7 (9.5-12.2) fL Immature Gran % (Auto) 0.2 % Neutrophils % 65.0 % Lymphocytes % 27.9 % Monocytes % 4.6 % Eosinophils % 1.8 % Basophils % 0.5 % Immature Gran # 0.02 (0.00-0.04) 10*3/uL Neutrophils # 5.47 (1.80-7.70) 10*3/uL Lymphocytes # 2.35 (0.90-5.00) 10*3/uL Monocytes # 0.39 (0.20-1.00) 10*3/uL Eosinophils # 0.15 (0.04-0.35) 10*3/uL Basophils # 0.04 (0.00-0.10) 10*3/uL Sodium 139 (137-145) mmol/L Potassium 4.1 (3.5-5.1) mmol/L Chloride 106 (98-107) mmol/L Carbon Dioxide 17 L (22-30) mmol/L Anion Gap 16 mmol/L BUN 11 (7-17) mg/dL Creatinine 0.77 (0.52-1.04) mg/dL Est GFR (CKD-EPI)AfAm >90 (>60 ml/min/1.73 sqM) Est GFR (CKD-EPI)NonAf >90 (>60 ml/min/1.73 sqM) Glucose 115 H (74-99) mg/dL Calcium 9.6 (8.4-10.2) mg/dL Total Bilirubin 0.4 (0.2-1.3) mg/dL AST 33 (14-36) U/L ALT 29 (4-34) U/L Alkaline Phosphatase 37 L (38-126) U/L Total Protein 7.4 (6.3-8.2) g/dL Albumin 4.4 (3.5-5.0) g/dL Urine Color Yellow Urine Appearance Cloudy H (Clear) Urine pH 5.5 (5.0-8.0) Ur Specific [place] 1.022 (1.001-1.035) Urine Protein Negative (Negative) Urine Glucose (UA) Negative (Negative) Urine Ketones Negative (Negative) Urine Blood Trace H (Negative) Urine Nitrite Negative (Negative) Urine Bilirubin Negative (Negative) Urine Urobilinogen <2.0 (<2.0) mg/dL Ur Leukocyte Esterase Large H (Negative) Urine RBC 7 H (0-5) /hpf Urine WBC 25 H (0-5) /hpf Ur Squamous Epith Cells 29 H (0-4) /hpf Urine Bacteria Rare H (None) /hpf Hyaline Casts 1 (0-2) /lpf Urine Mucus Occasional H (None) /hpf Urine Yeast (Budding) Rare H (None) /hpf Urine HCG, Qual (Not Detectd) 06/18/25 Range/Units 21:25 WBC (4.50-10.00) 10*3/uL RBC (4.10-5.20) 10*6/uL Hgb (12.0-15.0) g/dL Hct (37.2-46.3) % MCV (80.0-97.0) fL MCH (27.0-32.0) pg MCHC (32.0-37.0) g/dL Plt Count (140-440) 10*3/uL MPV (9.5-12.2) fL Immature Gran % (Auto) % Neutrophils % % Lymphocytes % % Monocytes % % Eosinophils % % Basophils % % Immature Gran # (0.00-0.04) 10*3/uL Neutrophils # (1.80-7.70) 10*3/uL Lymphocytes # (0.90-5.00) 10*3/uL Monocytes # (0.20-1.00) 10*3/uL Eosinophils # (0.04-0.35) 10*3/uL Basophils # (0.00-0.10) 10*3/uL Sodium (137-145) mmol/L Potassium (3.5-5.1) mmol/L Chloride (98-107) mmol/L Carbon Dioxide (22-30) mmol/L Anion Gap mmol/L BUN (7-17) mg/dL Creatinine (0.52-1.04) mg/dL Est GFR (CKD-EPI)AfAm (>60 ml/min/1.73 sqM) Est GFR (CKD-EPI)NonAf (>60 ml/min/1.73 sqM) Glucose (74-99) mg/dL Calcium (8.4-10.2) mg/dL Total Bilirubin (0.2-1.3) mg/dL AST (14-36) U/L ALT (4-34) U/L Alkaline Phosphatase (38-126) U/L Total Protein (6.3-8.2) g/dL Albumin (3.5-5.0) g/dL Urine Color Urine Appearance (Clear) Urine pH (5.0-8.0) Ur Specific [place] (1.001-1.035) Urine Protein (Negative) Urine Glucose (UA) (Negative) Urine Ketones (Negative) Urine Blood (Negative) Urine Nitrite (Negative) Urine Bilirubin (Negative) Urine Urobilinogen (<2.0) mg/dL Ur Leukocyte Esterase (Negative) Urine RBC (0-5) /hpf Urine WBC (0-5) /hpf Ur Squamous Epith Cells (0-4) /hpf Urine Bacteria (None) /hpf Hyaline Casts (0-2) /lpf Urine Mucus (None) /hpf Urine Yeast (Budding) (None) /hpf Urine HCG, Qual Not Detected (Not Detectd) Disposition Clinical Impression: Vertigo, Eustachian tube dysfunction Disposition: HOME SELF-CARE Condition: Stable Instructions (If sedation given, give patient instructions): Dizziness (ED) Additional Instructions: Please follow up with your doctor. Return to the emergency department for new or worsening symptoms. Prescriptions: Loratadine [Claritin] 10 mg PO DAILY #14 tab Fluticasone Nasal [place] [Flonase Nasal [place]] 2 spray EA NOSTRIL DAILY #16 gm Is patient prescribed a controlled substance at d/c from ED?: No Referrals: Gurjit Gauthier Jr, DO [Primary Care Provider] - 1-2 days
[2025-06-18] MEDS: SODIUM CHLORIDE 0.9% 1,000 ML IV STA (21:23)
[2025-06-18] MEDS: MECLIZINE 12.5 MG TAB PO STA (21:23)
[2025-06-18 21:36] LABS: Basophils # (A) 0.04 10*3/uL (0.00-0.10); Basophils % (A) 0.5 %; Eosinophils # (A) 0.15 10*3/uL (0.04-0.35); Eosinophils % (A) 1.8 %; HCT 41.7 % (37.2-46.3); HGB 13.9 g/dL (12.0-15.0); Lymphocytes # (A) 2.35 10*3/uL (0.90-5.00); Lymphocytes % (A) 27.9 %; MCH 28.5 pg (27.0-32.0); MCHC 33.3 g/dL (32.0-37.0); MCV 85.6 fL (80.0-97.0); Monocytes # (A) 0.39 10*3/uL (0.20-1.00); Monocytes % (A) 4.6 %; Neutrophils # (A) 5.47 10*3/uL (1.80-7.70); Neutrophils % (A) 65.0 %; Platelet Count 273 10*3/uL (140-440); RBC 4.87 10*6/uL (4.10-5.20); RDW 12.2 % (11.5-14.5); WBC 8.42 10*3/uL (4.50-10.00)
[2025-06-18 21:48] LABS: ALT 29 U/L (4-34); AST 33 U/L (14-36); African American GFR (CKD) >90 (>60 ml/min/1.73 sqM); Albumin 4.4 g/dL (3.5-5.0); Alkaline Phosphatase 37 U/L (38-126); Anion Gap 16 mmol/L; Blood Urea Nitrogen 11 mg/dL (7-17); Calcium 9.6 mg/dL (8.4-10.2); Carbon Dioxide 17 mmol/L (22-30); Chloride 106 mmol/L (98-107); Glucose 115 mg/dL (74-99); Non-African American GFR(CKD) >90 (>60 ml/min/1.73 sqM); Potassium 4.1 mmol/L (3.5-5.1); Sodium 139 mmol/L (137-145); Total Protein 7.4 g/dL (6.3-8.2)
[2025-06-18 21:49] LABS: Bacteria,Urine Rare /hpf; Bilirubin,Urine Negative (Negative); Blood,Urine Trace (Negative); Budding Yeast,Urine Rare /hpf; Color,Urine Yellow; Glucose,Urine (UA) Negative (Negative); Hyaline Casts,Urine 1 /lpf (0-2); Ketones,Urine Negative (Negative); Leukocyte Esterase,Urine Large (Negative); Mucus,Urine Occasional /hpf; Nitrite,Urine Negative (Negative); PH, Urine 5.5 (5.0-8.0); Protein,Urine Negative (Negative); RBC,Urine 7 /hpf (0-5); Specific Gravity,Urine 1.022 (1.001-1.035); Squamous Epithelial Cell,Urine 29 /hpf (0-4); Urobilinogen,Urine <2.0 mg/dL (<2.0); WBC,Urine 25 /hpf (0-5)
[2025-06-18] MEDS: SCOPOLAMINE 1 MG/72 HR PATCH TRANSDERM STA (23:40)
[2025-06-18 23:58] VITALS: BP 136/87; PULSE 89
== END 2025-06-18 23:57 | disposition home or self-care (01) ==
LOC: EC 19:08
DX: H69.90 Unspecified Eustachian tube disorder, unspecified ear (principal)
CPT/HCPCS: 36415; 80053; 81001; 81025; 85025; 87086; 93005; 96360; 96361; 99284